=== PATIENT | male | born 1970 | race Two or more races ===

== ENCOUNTER → 2020-04-17 | Outpatient (CLI) | payer OTHER ==
--- NOTE | 2020-04-17 08:44 | RAD ---
Examination: Ultrasound abdomen complete HISTORY: History of elevated liver function tests COMPARISON: None available. FINDINGS: The visualized aorta, IVC within normal limits of dimension. Moderate increased echogenicity identifi ed in the liver likely hepatic steatosis. The common bile duct measures 3.8 mm in transverse dimensio n. The gallbladder is mildly distended. The right kidney measures 12.2 x 5.6 x 5.2 cm. The left kidne y measures 13.4 x 5.7 x 7.1 cm. The pancreas is not well-visualized due to bowel gas. The visualized pancreas grossly appears unremarkable. IMPRESSION: Hepatic steatosis. Electronically signed by: Anthony Choi MD (04/17/2020 8:41 AM) [id number]
== END ==
LOC: US 08:11
PROVIDERS: ATTEND Family Medicine
DX: K76.0 Fatty (change of) liver, not elsewhere classified (principal); R74.8 Abnormal levels of other serum enzymes
CPT/HCPCS: 76700